=== PATIENT | female | born 1940 | race Caucasian/White ===

== ENCOUNTER → 2016-07-27 | Outpatient (CLI) | payer OTHER ==
[~2016-07-27] MED LIST: CALCTAB5 PO; CARB200T3 PO; HYDR25TA4 PO; LOSA25TA18 PO; MISCTAB88 PO; MULTTAB58 PO; NAPR220T PO; OXYB5TAB PO
--- NOTE | 2016-07-27 16:01 | MAMMOGRAPHY REPORT ---
BILATERAL DIGITAL SCREENING MAMMOGRAM WITH CAD: 07/27/2016 CLINICAL HISTORY: Routine screening. Patient has no complaints. TECHNIQUE: Bilateral CC and MLO views were obtained. Current study was also evaluated with a Compute r Aided Detection (CAD) system. COMPARISON: Comparison is made to exams dated: 08/16/2014 mammogram, 08/14/2013 mammogram, 08/11/2012 m ammogram, 09/09/2011 mammogram, and 08/11/2011 mammogram - [facility]. BREAST COMPOSITION: There are scattered areas of fibroglandular density in both breasts. FINDINGS: There is a stable metallic biopsy marker in the central right breast, and a stable grouping of microcalcifications in the medial left breast. No new suspicious mass, architectural distortion or cluster of microcalcifications is seen. IMPRESSION: ACR BI-RADS CATEGORY 1: NEGATIVE There is no mammographic evidence of malignancy. A 1 year screening mammogram is recommended. The pa tient will receive written notification of the results. Approximately 10% of breast cancers are not detected with mammography. A negative mammographic report should not delay biopsy if a clinically suggestive mass is present. Angeles Wing M.D. ay/:07/27/2016 15:41:34 Manager Studio: Adal SERNA(Charlotte)(Mireille), [facility] letter sent: Normal 1/2 BI-RADS Code: ACR BI-RADS Category 1: Negative
== END | disposition home or self-care (01) ==
LOC: C.MAMM 14:38
PROVIDERS: ATTEND Internal Medicine
DX: Z12.31 Encounter for screening mammogram for malignant neoplasm of breast (principal); R07.9 Chest pain, unspecified

== ENCOUNTER → 2016-07-27 | Outpatient (CLI) | payer OTHER ==
--- NOTE | 2016-07-27 14:30 | DIAGNOSTIC IMAGING REPORT ---
CHEST 2 VIEWS ROUTINE CLINICAL HISTORY: Left-sided chest pain COMPARISON STUDY: 07/10/2012 FINDINGS: There is a scoliosis. The heart is the upper limits of normal in size. There is aortic tortuosity. There is no failure. There is no focal pulmonary consolidation. There are no pleural effusions. A left infra axillary soft tissue calcification is again visualized. IMPRESSION: No active disease in the chest. Electronically signed by: Marvel Dillard M.D. 07/27/2016 2:29 PM Dictated Date/Time: 07/27/2016 2:28 PM
== END | disposition home or self-care (01) ==
LOC: C.RAD 13:46
PROVIDERS: ATTEND Internal Medicine
DX: R07.9 Chest pain, unspecified (principal)

== ENCOUNTER → 2016-12-30 | Outpatient (CLI) | payer OTHER ==
[2016-12-30 08:57] LABS: HEMATOCRIT 37.1 % (37-47); MEAN CELL VOLUME 96.4 fL (80-100); MEAN CORPUSCULAR HEMOGLOBIN 31.4 pg (25-34); MEAN CORPUSCULAR HGB CONC 32.6 g/dl (32-36); MEAN PLATELET VOLUME 11.6 fL (7.4-10.4); PLATELET COUNT 165 K/uL (130-400); RED BLOOD COUNT 3.85 M/uL (4.2-5.4); WHITE BLOOD COUNT 5.03 K/uL (4.8-10.8)
[2016-12-30 09:03] LABS: BLOOD UREA NITROGEN 29 mg/dl (7-18); BUN/CREATININE RATIO 33.2 (10-20); CALCIUM 8.9 mg/dl (8.5-10.1); CARBON DIOXIDE 30 mmol/L (21-32); CHLORIDE 109 mmol/L (98-107); CHOLESTEROL 194 mg/dl (0-200); CREATININE 0.88 mg/dl (0.60-1.20); GLUCOSE 95 mg/dl (70-99); POTASSIUM 3.7 mmol/L (3.5-5.1); SODIUM 143 mmol/L (136-145)
[2016-12-30 09:14] LABS: CHOLESTEROL/HDL RATIO 2.2; FERRITIN 23.7 ng/ml (8.0-388.0); HDL CHOLESTEROL 90 mg/dl; LDL CHOLESTEROL CALCULATED 91 mg/dl; TRIGLYCERIDES 66 mg/dl (0-150); VERY LOW DENSITY LIPOPROT CALC 13 mg/dl
[2016-12-30 09:19] LABS: PROLACTIN 13.61 ng/mL; TESTOSTERONE,TOTAL 13.4 ng/dl
== END | disposition home or self-care (01) ==
LOC: C.LABFOXMH 08:21
PROVIDERS: ATTEND Internal Medicine Hospice and Palliative Medicine
DX: E78.2 Mixed hyperlipidemia (principal); L65.9 Nonscarring hair loss, unspecified

== ENCOUNTER → 2017-02-03 | Outpatient (CLI) | payer OTHER ==
[2017-02-03 08:19] LABS: HEMATOCRIT 37.5 % (37-47); MEAN CELL VOLUME 96.6 fL (80-100); MEAN CORPUSCULAR HEMOGLOBIN 31.7 pg (25-34); MEAN CORPUSCULAR HGB CONC 32.8 g/dl (32-36); MEAN PLATELET VOLUME 11.6 fL (7.4-10.4); PLATELET COUNT 157 K/uL (130-400); RED BLOOD COUNT 3.88 M/uL (4.2-5.4); WHITE BLOOD COUNT 3.72 K/uL (4.8-10.8)
[2017-02-03 08:27] LABS: ALT/SGPT 21 U/L (12-78); AMYLASE 47 U/L (25-115); BLOOD UREA NITROGEN 20 mg/dl (7-18); BUN/CREATININE RATIO 28.1 (10-20); CALCIUM 8.5 mg/dl (8.5-10.1); CARBON DIOXIDE 29 mmol/L (21-32); CHLORIDE 107 mmol/L (98-107); CREATININE 0.71 mg/dl (0.60-1.20); GLUCOSE 87 mg/dl (70-99); POTASSIUM 3.6 mmol/L (3.5-5.1); SODIUM 141 mmol/L (136-145)
[2017-02-03 08:30] LABS: ALB/GLOB RATIO 0.9 (0.9-2); ALKALINE PHOSPHATASE 119 U/L (45-117); AST/SGOT 20 U/L (15-37); FERRITIN 19.4 ng/ml (8.0-388.0); TOTAL IRON BINDING CAPACITY 338 mcg/dl (250-450)
== END | disposition home or self-care (01) ==
LOC: C.LABFOXMH 07:32
PROVIDERS: ATTEND Internal Medicine
DX: D64.9 Anemia, unspecified (principal); R10.9 Unspecified abdominal pain

== ENCOUNTER → 2017-02-03 | Outpatient (CLI) | payer OTHER ==
--- NOTE | 2017-02-03 14:15 | DIAGNOSTIC IMAGING REPORT ---
TWO VIEW CHEST CLINICAL HISTORY: Atypical chest pain. FINDINGS: PA and lateral chest radiographs are compared to study dated 07/27/2016. The heart is enlarged and there is atherosclerotic calcification of the thoracic aorta. The pulmonary vasculature is noncongested. Chronic interstitial thickening is similar to previous. No airspace consolidation or pleural effusion is identified. There is no pneumothorax. The skeletal structures are osteopenic. Degenerative change and scoliosis are noted in the thoracic spine. A left axillary calcification is unchanged. IMPRESSION: Cardiomegaly with no acute cardiopulmonary abnormality. Electronically signed by: Brennan Wilson M.D. 02/03/2017 2:14 PM Dictated Date/Time: 02/03/2017 2:13 PM
== END ==
LOC: C.RAD 13:18
PROVIDERS: ATTEND Internal Medicine
DX: I51.7 Cardiomegaly (principal)

== ENCOUNTER 2017-05-02 10:11 | Emergency (ER) | payer OTHER ==
[~2017-05-02] VITALS: Ht 162.6 cm; Wt 65.0 kg
[2017-05-02 10:12] VITALS: TEMP 36.7; Ht 162.6 cm; Wt 65.0 kg
[2017-05-02 10:32] VITALS: O2SAT 96
[2017-05-02] MEDS ORDERED: ASPIRIN 81 MG CHEW PO STA (10:34)
--- NOTE | 2017-05-02 10:44 | EMERGENCY ROOM VISIT NOTE ---
History Report prepared by Rashad: Anastasiya Ma Under the Supervision of: Dr. Uriel Salinas M.D. First contact with patient: 10:21 Chief Complaint: OTHER COMPLAINT Stated Complaint: HIGH BLOOD PRESSURE 180/110 SLIGHT PAIN IN CHEST History of Present Illness The patient is a 76 year old female who presents to the Emergency Room with complaints of an episode of high blood pressure occurring this morning. The patient states when she took her blood pressure this morning is was 180/110. The patient states that two nights ago she had an episode of severe pain around her lower chest with a headache. The patient lives at [facility]. She reports when she had this episode of chest pain she called the nursing at [facility] and they took her vitals. She states [facility] staff persuaded her to come to the ED for further evaluation but she refused. She denies shortness of breath during her episode of chest pain. Presently, the patient notes a headache and some upper central back pain which started this morning. Presently, the patient rates her headache as a 2/10 and chest discomfort as a 1/10. Presently, she denies any chest pain, shortness of breath, or nausea. She denies any history of abdominal surgeries. The patient denies any recent travel. The patient is on Xarelto for a history of atrial fibrillation. The patient is not a smoker. Source of History: patient Onset: this morning Position: other (generalized) Symptom Intensity: 2/10 Quality: other (high blood pressure) Timing: other (episode) Associated Symptoms: + headache, No chest pain, No SOB, No nausea Review of Systems See HPI for pertinent positives and negatives. A total of ten systems were reviewed and were otherwise negative. Past Medical & Surgical Medical Problems: (1) Atrial fibrillation Family History Atrial fibrillation Social History Smoking Status: Never Smoker Housing Status: skilled nursing Occupation Status: retired Current/Historical Medications Scheduled Acetaminophen (Tylenol), 1 TAB PO Q8 Diltiazem Hcl Ext Rel (Tiazac), 120 MG PO DAILY Melatonin (Kp Melatonin), 1 TAB PO HS Oxybutynin Chloride (Oxybutynin Chloride Er), 10 MG PO DAILY Pantoprazole (Protonix), 40 MG PO DAILY Rivaroxaban (Xarelto), 1 TAB PO DAILY Valsartan (Diovan), 1 TAB PO DAILY Miscellaneous Medications Calcium Carbonate-Vitamin D (Calcium 500+D) Carbamazepine (Tegretol), 200 MG PO Naproxen (Aleve), 220 MG PO Allergies Coded Allergies: Lisinopril (Verified Allergy, Unknown, cough, 05/14/15) [place] Statins (Verified Allergy, Unknown, aphthous ulcers, 05/14/15) [place] Physical Exam Vital Signs Date Time Temp Pulse Resp B/P (MAP) Pulse Ox O2 Delivery O2 Flow Rate FiO2 05/02/17 14:28 88 16 138/85 95 Room Air 05/02/17 13:26 97 05/02/17 13:14 80 16 113/87 95 Room Air 05/02/17 12:17 89 16 127/82 95 Room Air 05/02/17 10:36 86 05/02/17 10:35 77 16 159/94 96 Room Air 05/02/17 10:32 96 Room Air 05/02/17 10:12 36.7 83 18 173/80 97 Room Air Physical Exam Physical Exam GENERAL: She is oriented to person, place, and time. She appears well- developed and well-nourished. She does not appear distressed. ____ HENT: Exam performed. Head: Normocephalic and atraumatic. Right Ear: External ear normal. No mastoid tenderness. Left Ear: External ear normal. No mastoid tenderness. Mouth/Throat: The oropharynx is clear and moist. No trismus in the jaw. No dental abscesses or uvula swelling. No oropharyngeal exudate or tonsillar abscesses. ____ EYES: Conjunctivae and EOM are normal. Pupils are equal, round, and reactive to light. Right eye exhibits no discharge. Left eye exhibits no discharge. No scleral icterus. ____ NECK: Normal range of motion. Neck supple. No JVD present. No spinous process tenderness present. No carotid bruit present. No rigidity. No tracheal deviation and normal range of motion present. No Brudzinski's sign and no Kernig 's sign noted. ____ CV: Normal rate, Irregular rhythm, normal heart sounds and intact distal pulses. There is no peripheral edema. Palpable radial pulses bue. ____ PULM/CHEST: Effort normal and breath sounds normal. No respiratory distress. No stridor. She has no wheezes. She has no rales. Chest Wall: She exhibits no tenderness. ____ ABD: The abdomen is soft. Bowel sounds are normal. She has no distension. No mass is present. There is no tenderness. There is no rebound, no guarding, no Moran's sign and no tenderness at McBurney's point. Rovsig negative MUSC/SKEL: Normal range of motion. There is no peripheral edema, tenderness or deformity. LYMPH: No cervical adenopathy. ____ NEURO: She is alert and oriented to person, place, and time. She has normal strength. No cranial nerve deficit or sensory deficit. Coordination and gait normal. GCS eye subscore is 4. GCS verbal subscore is 5. GCS motor subscore is 6. Cerebellar tests wnl. ____ SKIN: Skin is warm and dry. She is not diaphoretic. ____ PSYCH: She has a normal mood and affect. Her behavior is normal. Judgment and thought content normal. ____ Medical Decision & Procedures ER Provider Diagnostic Interpretation: Radiology results as stated below per my review and radiologist interpretation: CHEST 2 VIEWS ROUTINE FINDINGS: The heart is enlarged. There is aortic tortuosity/ectasia. There is a mild scoliosis. There is no focal pulmonary consolidation. There are no significant pleural effusions. There is subtle elevation of the interstitium. Mild pulmonary vascular congestion is suspected.[ A left axillary calcifications remain stable. This is likely secondary to a calcified lymph node. IMPRESSION: Cardiomegaly and suspected mild pulmonary vascular congestion. No evidence of focal pulmonary consolidation. Electronically signed by: Marvel Dillard M.D. CT HEAD WITHOUT CONTRAST (CT) FINDINGS: No intra or extra-axial mass lesions are visualized. There is no CT evidence of acute cortical infarction. There is no evidence of midline shift. There is no acute hemorrhage. No calvarial fractures are visualized. There are patchy white matter hypodensities likely on a small vessel basis. There is no evidence of pathologic ventricular dilatation. There is mild maxillary and ethmoid sinus mucosal thickening. IMPRESSION: No acute intracranial findings Electronically signed by: Marvel Dillard M.D. Laboratory Results 05/02/17 10:40 Red Blood Count 4.33, Mean Corpuscular Volume 94.7, Mean Corpuscular Hemoglobin 32.3, Mean Corpuscular Hemoglobin Concent 34.1, Mean Platelet Volume 10.9, Neutrophils (%) (Auto) 53.0, Lymphocytes (%) (Auto) 34.5, Monocytes (%) (Auto) 6.3, Eosinophils (%) (Auto) 5.6, Basophils (%) (Auto) 0.3, Neutrophils # (Auto) 2.09, Lymphocytes # (Auto) 1.36, Monocytes # (Auto) 0.25, Eosinophils # (Auto) 0.22, Basophils # (Auto) 0.01 05/02/17 10:40 Test 05/02/17 10:15 05/02/17 10:40 05/02/17 13:45 Urine Color YELLOW Urine Appearance CLEAR (CLEAR) Urine pH 7.5 (4.5-7.5) Urine Specific [place] 1.013 (1.000-1.030) Urine Protein NEG (NEG) Urine Glucose (UA) NEG (NEG) Urine Ketones NEG (NEG) Urine Occult Blood NEG (NEG) Urine Nitrite NEG (NEG) Urine Bilirubin NEG (NEG) Urine Urobilinogen NEG (NEG) Urine Leukocyte Esterase NEG (NEG) White Blood Count 3.94 K/uL (4.8-10.8) Red Blood Count 4.33 M/uL (4.2-5.4) Hemoglobin 14.0 g/dL (12.0-16.0) Hematocrit 41.0 % (37-47) Mean Corpuscular Volume 94.7 fL (80-100) Mean Corpuscular Hemoglobin 32.3 pg (25-34) Mean Corpuscular Hemoglobin Concent 34.1 g/dl (32-36) Platelet Count 172 K/uL (130-400) Mean Platelet Volume 10.9 fL (7.4-10.4) Neutrophils (%) (Auto) 53.0 % Lymphocytes (%) (Auto) 34.5 % Monocytes (%) (Auto) 6.3 % Eosinophils (%) (Auto) 5.6 % Basophils (%) (Auto) 0.3 % Neutrophils # (Auto) 2.09 K/uL (1.4-6.5) Lymphocytes # (Auto) 1.36 K/uL (1.2-3.4) Monocytes # (Auto) 0.25 K/uL (0.11-0.59) Eosinophils # (Auto) 0.22 K/uL (0-0.5) Basophils # (Auto) 0.01 K/uL (0-0.2) RDW Standard Deviation 47.0 fL (36.4-46.3) RDW Coefficient of Variation 13.5 % (11.5-14.5) Immature Granulocyte % (Auto) 0.3 % Immature Granulocyte # (Auto) 0.01 K/uL (0.00-0.02) Prothrombin Time 11.3 SECONDS (9.0-12.0) Prothromb Time International Ratio 1.1 (0.9-1.1) Activated Partial Thromboplast Time 29.3 SECONDS (21.0-31.0) Partial Thromboplastin Ratio 1.1 Anion Gap 6.0 mmol/L (3-11) Est Creatinine Clear Calc Drug Dose 47.7 ml/min Estimated GFR () 77.2 Estimated GFR (Non- 66.6 BUN/Creatinine Ratio 25.6 (10-20) Calcium Level 9.1 mg/dl (8.5-10.1) Total Bilirubin 0.4 mg/dl (0.2-1) Direct Bilirubin 0.1 mg/dl (0-0.2) Aspartate Amino Transf (AST/SGOT) 20 U/L (15-37) Alanine Aminotransferase (ALT/SGPT) 24 U/L (12-78) Alkaline Phosphatase 141 U/L (45-117) Pro-B-Type Natriuretic Peptide 1898 pg/ml (0-1800) Total Protein 8.1 gm/dl (6.4-8.2) Albumin 3.9 gm/dl (3.4-5.0) Lipase 143 U/L (73-393) Troponin I < 0.015 ng/ml (0-0.045) Laboratory results reviewed by me Medications Administered Medications (Trade) Dose Ordered Sig/Brandon Route Start Time Stop Time Status Last Admin Dose Admin Aspirin (Aspirin Chew) 324 mg NOW STAT PO 05/02/17 10:34 05/02/17 10:35 DC 05/02/17 11:14 324 MG ECG Per My Interpretation Indication: chest pain Rate (beats per minute): 77 Rhythm: atrial fibrillation Findings: other (QRS, QTC within normal limits, no ST elevation or ST depression) ED Course 1024: The patient was evaluated in room B7. A complete history and physical exam was performed. 1034: Ordered Aspirin 324 mg PO. 1242: Labs within normal limits. ProBNP minimally elevated at 1898. Imaging including CT of the head within normal limits. Chest x-ray showed no acute infiltrate, mild cardiomegaly with mild pulmonary congestion. On reassessment, the patient's vitals are stable. She denies any chest pain or shortness of breath. Discussed the patient's case with Dr. Leyva-truck service manager for PCP at . She agreed if the patient's repeat troponin is negative she can follow up for an outpatient echo. The patient has not had an echo since . 1441: Vital signs stable, repeat troponin negative I reevaluated the patient. Discussed results and discharge instructions: She verbalized understanding and agreement. The patient is ready for discharge. DISCHARGE - Plan of care discussed with patient and questions answered. The patient was given both verbal and printed discharge instructions. The patient verbalized understanding and ability to comply. The patient is to seek outpatient follow up as noted in the discharge instructions. The patient verbalized understanding and ability to comply. The patient is discharged in stable condition. The patient was instructed to return for worsening symptoms. Medical Decision Labs within normal limits. Troponin 2 negative. ProBNP minimally elevated at 1898. Imaging including CT of the head within normal limits. Chest x-ray showed no acute infiltrate, mild cardiomegaly with mild pulmonary congestion. On reassessment, the patient's vitals are stable. She denies any chest pain or shortness of breath. Discussed the patient's case with Dr. Leyva-truck service manager for PCP at [phone]. She agreed if the patient's repeat troponin is negative she can follow up for an outpatient echo. The patient has not had an echo since . Medication Reconcilliation Current Medication List: was personally reviewed by me Blood Pressure Screening Patient's blood pressure: Elevated blood pressure Blood pressure disposition: Referred to PCP Consults Time Called: 1239 Consulting Physician: Dr. Leyva-truck service manager for PCP Returned Call: 1242 Discussed the patient's case with Dr. Leyva-truck service manager for PCP at [phone]. Impression Primary Impression: Chest pain Additional Impression: Hypertension Scribe Attestation The scribe's documentation has been prepared under my direction and personally reviewed by me in its entirety. I confirm that the note above accurately reflects all work, treatment, procedures, and medical decision making performed by me. The chart was completed utilizing [employer] Speech voice recognition software. Grammatical errors, random word insertions, pronoun errors, and incomplete sentences are an occasional consequence of this system due to software limitations, ambient noise, and hardware issues. Any formal questions or concerns about the content, text, or information contained within the body of this dictation should be directly addressed to the physician for clarification. Departure Information Dispostion Home / Self-Care Referrals Sky Winters M.D. (PCP) Forms HOME CARE DOCUMENTATION FORM, IMPORTANT VISIT INFORMATION, WORK / SCHOOL INSTRUCTIONS Patient Instructions Chest Pain - [facility], Hypertension [place], My [facility] Health Problem Qualifiers Primary Impression: Chest pain Chest pain type: unspecified Qualified Codes: R07.9 - Chest pain, unspecified Additional Impression: Hypertension Hypertension type: unspecified Qualified Codes: I10 - Essential (primary) hypertension
[2017-05-02 10:54] LABS: BASO % 0.3 %; BASO ABS # 0.01 K/uL (0-0.2); EOS % 5.6 %; EOS ABS # 0.22 K/uL (0-0.5); IG# 0.01 K/uL (0.00-0.02); LYMPH % 34.5 %; LYMPH ABS # 1.36 K/uL (1.2-3.4); MEAN CELL VOLUME 94.7 fL (80-100); MEAN CORPUSCULAR HEMOGLOBIN 32.3 pg (25-34); MEAN CORPUSCULAR HGB CONC 34.1 g/dl (32-36); MEAN PLATELET VOLUME 10.9 fL (7.4-10.4); MONO % 6.3 %; MONO ABS # 0.25 K/uL (0.11-0.59); NEUT ABS # 2.09 K/uL (1.4-6.5); PLATELET COUNT 172 K/uL (130-400); RED CELL DISTRIBUTION WIDTH CV 13.5 % (11.5-14.5); WHITE BLOOD COUNT 3.94 K/uL (4.8-10.8)
[2017-05-02] MEDS ORDERED: PANT40TA PO (11:07)
[2017-05-02] MEDS ORDERED: RIVA1TAB4 PO (11:07)
[2017-05-02] MEDS ORDERED: VALS40TA2 PO (11:07)
[2017-05-02] MEDS ORDERED: NAPR1TAB9 PO (11:07)
[2017-05-02] MEDS ORDERED: MELA1TAB5 PO (11:07)
[2017-05-02] MEDS ORDERED: DILT120C68 PO (11:07)
[2017-05-02] MEDS ORDERED: CARB200T PO (11:07)
[2017-05-02] MEDS ORDERED: OXYB5TAB PO (11:07)
[2017-05-02] MEDS ORDERED: CALCTAB76 (11:08)
[2017-05-02] MEDS ORDERED: ACET-1256 PO (11:08)
[2017-05-02 11:09] LABS: INR 1.1 (0.9-1.1); PTT PATIENT 29.3 SECONDS (21.0-31.0)
[2017-05-02 11:13] LABS: ALBUMIN 3.9 gm/dl (3.4-5.0); ALT/SGPT 24 U/L (12-78); AST/SGOT 20 U/L (15-37); BLOOD UREA NITROGEN 21 mg/dl (7-18); CALCIUM 9.1 mg/dl (8.5-10.1); CARBON DIOXIDE 29 mmol/L (21-32); CREATININE 0.84 mg/dl (0.60-1.20); GLUCOSE 114 mg/dl (70-99); LIPASE 143 U/L (73-393); POTASSIUM 3.6 mmol/L (3.5-5.1); SODIUM 140 mmol/L (136-145)
[2017-05-02 11:18] LABS: ALKALINE PHOSPHATASE 141 U/L (45-117); TOTAL PROTEIN 8.1 gm/dl (6.4-8.2)
--- NOTE | 2017-05-02 11:29 | DIAGNOSTIC IMAGING REPORT ---
CT HEAD WITHOUT CONTRAST (CT) CLINICAL HISTORY: Severe headache COMPARISON STUDY: No previous studies for comparison. TECHNIQUE: Axial CT of the brain is performed from the vertex to the skull base. IV contrast was not administered for this examination. A dose lowering technique was utilized adhering to the principles of ALARA. CT DOSE: 537.48 mGy.cm FINDINGS: No intra or extra-axial mass lesions are visualized. There is no CT evidence of acute cortical infarction. There is no evidence of midline shift. There is no acute hemorrhage. No calvarial fractures are visualized. There are patchy white matter hypodensities likely on a small vessel basis. There is no evidence of pathologic ventricular dilatation. There is mild maxillary and ethmoid sinus mucosal thickening. IMPRESSION: No acute intracranial findings Electronically signed by: Marvel Dillard M.D. 05/02/2017 11:28 AM Dictated Date/Time: 05/02/2017 11:27 AM
--- NOTE | 2017-05-02 11:54 | DIAGNOSTIC IMAGING REPORT ---
CHEST 2 VIEWS ROUTINE CLINICAL HISTORY: Atypical chest pain. Hypertension COMPARISON STUDY: No previous studies for comparison. FINDINGS: The heart is enlarged. There is aortic tortuosity/ectasia. There is a mild scoliosis. There is no focal pulmonary consolidation. There are no significant pleural effusions. There is subtle elevation of the interstitium. Mild pulmonary vascular congestion is suspected.[ A left axillary calcifications remain stable. This is likely secondary to a calcified lymph node. IMPRESSION: Cardiomegaly and suspected mild pulmonary vascular congestion. No evidence of focal pulmonary consolidation. Electronically signed by: Marvel Dillard M.D. 05/02/2017 11:52 AM Dictated Date/Time: 05/02/2017 11:52 AM
[2017-05-02 14:28] VITALS: BP 138/85; PULSE 88; O2SAT 95
== END 2017-05-02 14:45 | disposition home or self-care (01) ==
LOC: C.EDB 10:12
DX: R07.9 Chest pain, unspecified (principal); I10 Essential (primary) hypertension; I48.91 Unspecified atrial fibrillation; Z79.01 Long term (current) use of anticoagulants; Z88.8 Allergy status to other drugs, medicaments and biological substances; Z82.49 Family history of ischemic heart disease and other diseases of the circulatory system

== ENCOUNTER → 2017-05-17 | Outpatient (CLI) | payer OTHER ==
[~2017-05-17] MED LIST changes: +ACET-1256 PO; -CALCTAB5 PO; +CALCTAB76; +CARB200T PO; -CARB200T3 PO; +DILT120C68 PO; -HYDR25TA4 PO; -LOSA25TA18 PO; +MELA1TAB5 PO; -MISCTAB88 PO; -MULTTAB58 PO; +NAPR1TAB9 PO; -NAPR220T PO; +PANT40TA PO; +RIVA1TAB4 PO; +VALS40TA2 PO
[2017-05-17 08:46] LABS: HEMATOCRIT 37.5 % (37-47); HEMOGLOBIN 12.7 g/dL (12.0-16.0); MEAN CELL VOLUME 95.4 fL (80-100); MEAN CORPUSCULAR HEMOGLOBIN 32.3 pg (25-34); MEAN CORPUSCULAR HGB CONC 33.9 g/dl (32-36); MEAN PLATELET VOLUME 10.8 fL (7.4-10.4); PLATELET COUNT 175 K/uL (130-400); RED CELL DISTRIBUTION WIDTH SD 45.3 fL (36.4-46.3); WHITE BLOOD COUNT 4.56 K/uL (4.8-10.8)
== END | disposition home or self-care (01) ==
LOC: C.LABFOXMH 08:31
PROVIDERS: ATTEND Internal Medicine
DX: D64.9 Anemia, unspecified (principal)

== ENCOUNTER → 2017-05-19 | Outpatient (CLI) | payer OTHER | END | disposition home or self-care (01) | LOC: C.LABFOXMH 10:32 | PROVIDERS: ATTEND Internal Medicine Hospice and Palliative Medicine | DX: R35.0 Frequency of micturition (principal) ==